=== PATIENT | female | born 1965 | race Caucasian/White ===

== ENCOUNTER 2017-09-06 17:59 | Inpatient (IN) | payer OTHER ==
[2017-09-06 18:00] VITALS: BP 179/86; PULSE 103; RESP 20; TEMP 99.1; O2SAT 98
[2017-09-06] MEDS ORDERED: LOVA20TA PO (18:05)
[2017-09-06] MEDS ORDERED: PREV30CA36 PO (18:05)
[2017-09-06] MEDS ORDERED: SODIUM CHLOR 0.9% 1000 ML INJ 1,000 ML IV SCH (18:26)
[2017-09-06] MEDS ORDERED: SODIUM CHLORIDE 0.9% FLUSH 10 ML FLUSH IV FLUSH PRN (18:30)
[2017-09-06] MEDS ORDERED: ONDANSETRON ODT 4 MG TAB PO ONE (18:30)
[2017-09-06] MEDS ORDERED: MORPHINE SULFATE 4 MG/ML INJ IV PUSH ONE (18:30)
--- NOTE | 2017-09-06 18:31 | PD ---
HPI Chief Complaint: Abdominal Pain Time Seen by Provider: 18:20 Travel History International Travel<30 days: No Contact w/Intl Traveler<30days: No Traveled to known affect area: No History of Present Illness HPI 52-year-old female here for evaluation of abdominal pain. At around 10:30 AM the patient began experiencing severe/sharp/right upper quadrant abdominal pain. At this time the patient became nauseous and vomited. Pain has been constant, moderate to severe, worse with movements and inspiration. No history of abdominal surgeries. She had a normal bowel movement this morning. She has felt subjective fevers and chills. PFSH Past Medical History High Cholesterol: Yes Diminished Hearing: No GERD: Yes (Brink's esophagus) Integumentary: Yes (Psoriasis ) Tetanus Vaccination: > 5 Years Influenza Vaccination: Yes ?: Not Tubal Ligation: Yes Past Surgical History Other Surgery: Yes (bilat bunion removal & left leg varicose veins) Family History Family Myocardial Infarction: Yes Social History Alcohol Use: Yes (socially) Tobacco Use: No Substance Use: No Allergies-Medications (Allergen,Severity, Reaction): Coded Allergies: prochlorperazine (Verified Allergy, Severe, 09/06/17) ANAPHYLAXIS Reported Meds & Prescriptions Reported Meds & Active Scripts Active Reported Lovastatin 20 Mg Tab 20 Mg PO DAILY Prevacid (Lansoprazole) 30 Mg Capdr 30 Mg PO DAILY Review of Systems Except as stated in HPI: all other systems reviewed are Neg Physical Exam Narrative GENERAL: Well-developed, well-nourished, no apparent distress. SKIN: Focused skin assessment warm/dry. No rash. HEAD: Atraumatic. Normocephalic. EYES: Pupils equal and round. No scleral icterus. No injection or drainage. ENT: Mucous membranes pink and moist. NECK: Trachea midline. No JVD. CARDIOVASCULAR: Regular rate and rhythm. RESPIRATORY: No accessory muscle use. Clear to auscultation. Breath sounds equal bilaterally. GASTROINTESTINAL: Abdomen soft, nondistended. Significant right upper quadrant tenderness with positive Delvalle sign. The rest of her abdomen is mildly tender. Normal bowel sounds. MUSCULOSKELETAL: No obvious deformities. No clubbing. No cyanosis. No edema. NEUROLOGICAL: Awake and alert. No obvious cranial nerve deficits. Motor grossly within normal limits. Normal speech. PSYCHIATRIC: Appropriate mood and affect; insight and judgment normal. Data Data Last Documented VS Vital Signs Date Time Temp Pulse Resp B/P (MAP) Pulse Ox O2 Delivery O2 Flow Rate FiO2 09/06/17 20:29 85 16 105/57 (73) 97 Room Air 09/06/17 18:00 99.1 Orders Orders Electrocardiogram (09/06/17 18:07) Complete Blood Count With Diff (09/06/17 18:) Comprehensive Metabolic Panel (09/06/17:) Lipase (09/06/17:) Prothrombin Time / Inr (Pt) (09/06/17:) Act Partial Throm Time (Ptt) (09/06/17:) Urinalysis - C+S If Indicated (09/06/17 18:) Us Abdomen Gallbladder (09/06/17 ) Iv Access Insert/Monitor (09/06/17:) Ecg Monitoring (09/06/17:) Oximetry (09/06/17 18:) Sodium Chlor 0.9% 1000 Ml Inj (Ns 1000 M (09/06/17 18:) Sodium Chloride 0.9% Flush (Ns Flush) (09/06/17 18:30) Ondansetron Odt (Zofran Odt) (09/06/17 18:30) Morphine Inj (Morphine Inj) (09/06/17 18:30) Chest, Single Ap (09/06/17 ) Ckmb (Isoenzyme) Profile (09/06/17 18:) Troponin I (09/06/17 18:26) Piperacil-Tazo 4.5 Gm Premix (Zosyn 4.5 (09/06/17 19:15) Hydromorphone Pf Inj (Dilaudid Pf Inj) (09/06/17 19:15) Ct Abd/Pel W Iv Contrast(Rout) (09/06/17 ) Sodium Chlor 0.9% 1000 Ml Inj (Ns 1000 M (09/06/17 19:15) Iohexol 350 Inj (Omnipaque 350 Inj) (09/06/17 20:28) Labs Laboratory Tests Test 09/06/17 18:15 09/06/17 18:30 Urine Color YELLOW Urine Turbidity CLEAR Urine pH 5.5 Urine Specific [place] 1.020 Urine Protein NEG mg/dL Urine Glucose (UA) 100 mg/dL Urine Ketones NEG mg/dL Urine Occult Blood NEG Urine Nitrite NEG Urine Bilirubin NEG Urine Urobilinogen 0.2 MG/DL Urine Leukocyte Esterase NEG Urine RBC 0-3 /hpf Urine WBC 0-2 /hpf Urine Squamous Epithelial Cells 0-5 /hpf Urine Bacteria NONE /hpf Microscopic Urinalysis Comment CULT NOT INDICATED White Blood Count 12.3 TH/MM3 Red Blood Count 4.90 MIL/MM3 Hemoglobin 13.8 GM/DL Hematocrit 41.9 % Mean Corpuscular Volume 85.4 FL Mean Corpuscular Hemoglobin 28.1 PG Mean Corpuscular Hemoglobin Concent 32.9 % Red Cell Distribution Width 12.2 % Platelet Count 311 TH/MM3 Mean Platelet Volume 8.6 FL Neutrophils (%) (Auto) 84.2 % Lymphocytes (%) (Auto) 10.9 % Monocytes (%) (Auto) 3.3 % Eosinophils (%) (Auto) 0.9 % Basophils (%) (Auto) 0.7 % Neutrophils # (Auto) 10.4 TH/MM3 Lymphocytes # (Auto) 1.3 TH/MM3 Monocytes # (Auto) 0.4 TH/MM3 Eosinophils # (Auto) 0.1 TH/MM3 Basophils # (Auto) 0.1 TH/MM3 CBC Comment AUTO DIFF Differential Comment AUTO DIFF CONFIRMED Platelet Estimate NORMAL Platelet Morphology Comment NORMAL Red Cell Morphology Comment NORMAL Prothrombin Time 10.2 SEC Prothromb Time International Ratio 1.0 RATIO Activated Partial Thromboplast Time 26.0 SEC Blood Urea Nitrogen 13 MG/DL Creatinine 0.69 MG/DL Random Glucose 178 MG/DL Total Protein 7.9 GM/DL Albumin 3.9 GM/DL Calcium Level 9.3 MG/DL Alkaline Phosphatase 72 U/L Aspartate Amino Transf (AST/SGOT) 14 U/L Alanine Aminotransferase (ALT/SGPT) 43 U/L Total Bilirubin 0.4 MG/DL Sodium Level 140 MEQ/L Potassium Level 3.8 MEQ/L Chloride Level 105 MEQ/L Carbon Dioxide Level 26.4 MEQ/L Anion Gap 9 MEQ/L Estimat Glomerular Filtration Rate 89 ML/MIN Total Creatine Kinase 74 U/L Troponin I LESS THAN 0.02 NG/ML Lipase 42604 U/L MDM Medical Decision Making Medical Screen Exam Complete: Yes Emergency Medical Condition: Yes Interpretation(s) EKG: Sinus, rate 82, normal axis, normal intervals, no acute ischemic abnormality. Differential Diagnosis Cholecystitis, cholelithiasis, pancreatitis, gastritis, peptic ulcer disease, ACS, PE Narrative Course Initial vital signs show heart rate 103, blood pressure 179/86, pulse ox 90% on room air, oral temp of 99.1F. CBC: WBC 12.3, hemoglobin 13.8, hematocrit 41.9, platelets 311, neutrophils 84%. CMP is remarkable for random glucose 178, otherwise unremarkable. Cardiac enzymes are negative. Lipase is 12,744. UA is not suggestive of UTI, 100 glucose. Patient was empirically given a dose of IV Zosyn for likely cholecystitis/ gallstone pancreatitis. Right upper quadrant ultrasound: CONCLUSION: 1. Enlarged echogenic liver likely moderate/severe hepatic steatosis. 2. No evidence for cholelithiasis Patient was made aware of all findings. Pain improved with 1 mg of IV Dilaudid. She was given a liter of normal saline IV and started on normal saline at 125 cc/h. She will be admitted for further treatment and evaluation of acute pancreatitis. Case discussed with [facility] hospitalist Dr. Reaves who will admit the patient to his service. Diagnosis Primary Impression: Acute pancreatitis Qualified Codes: K85.90 - Acute pancreatitis without necrosis or infection, unspecified Admitting Information Admitting Physician Requests: Admit Connor Simmons MD September 06, 2017 18:31
[2017-09-06 18:35] VITALS: RESP 17; O2SAT 98
[2017-09-06 18:42] LABS: AUTOMATED NEUTROPHIL # 10.4 TH/MM3 (1.8-7.7); BASOPHIL # 0.1 TH/MM3 (0-0.2); BASOPHIL % 0.7 % (0.0-2.0); EOSINOPHIL # 0.1 TH/MM3 (0-0.4); EOSINOPHIL % 0.9 % (0.0-4.0); HEMATOCRIT 41.9 % (35.0-46.0); HEMOGLOBIN 13.8 GM/DL (11.6-15.3); LYMPH % 10.9 % (9.0-44.0); LYMPHOCYTE # 1.3 TH/MM3 (1.0-4.8); MEAN CELL VOLUME 85.4 FL (80.0-100.0); MEAN CORPUSCULAR HEMOGLOBIN 28.1 PG (27.0-34.0); MEAN CORPUSCULAR HGB CONC 32.9 % (32.0-36.0); MEAN PLATELET VOLUME 8.6 FL (7.0-11.0); MONO % 3.3 % (0.0-8.0); MONOCYTE # 0.4 TH/MM3 (0-0.9); NEUT % 84.2 % (16.0-70.0); PLATELET COUNT 311 TH/MM3 (150-450); RED CELL DISTRIBUTION WIDTH 12.2 % (11.6-17.2); WHITE BLOOD COUNT 12.3 TH/MM3 (4.0-11.0)
[2017-09-06 18:44] LABS: BILIRUBIN, URINE NEG (NEG); BLOOD, URINE NEG (NEG); GLUCOSE,URINE 100 mg/dL (NEG); KETONE, URINE NEG (NEG); NITRITE,URINE NEG (NEG); PH, URINE 5.5 (5.0-8.5); URINE COLOR YELLOW (YELLW/STRAW); URINE LEUKOCYTE ESTERASE NEG (NEG)
--- NOTE | 2017-09-06 18:45 | RADRPT ---
EXAM DATE/TIME: 09/06/2017 18:32 [facility] COMPARISON: No previous studies available for comparison. INDICATIONS : Mid upper abdomen, mid lower chest area pain, nausea, vomiting, fever MEDICAL HISTORY : None. SURGICAL HISTORY : None. ENCOUNTER: Initial ACUITY: 1 day PAIN SCORE: 8/10 LOCATION: Bilateral lower chest FINDINGS: A single view of the chest demonstrates the lungs to be symmetrically aerated without evidence of mas s, infiltrate or effusion. The cardiomediastinal contours are unremarkable. Osseous structures are intact. CONCLUSION: No acute disease. Gage Mckeon MD on September 06, 2017 at 18:42 Board Certified Radiologist. This report was verified electronically.
[2017-09-06 18:54] LABS: CHLORIDE 105 MEQ/L (98-107); SODIUM (NA) 140 MEQ/L (136-145)
[2017-09-06 18:56] LABS: RBC, URINE 0-3 /hpf (0-3); SQUAMOUS EPITHELIAL CELL URINE 0-5 /hpf (0-5); WBC, URINE 0-2 /hpf (0-5)
[2017-09-06 18:58] LABS: CALCIUM 9.3 MG/DL (8.5-10.1)
[2017-09-06 18:59] LABS: ALBUMIN 3.9 GM/DL (3.4-5.0); BICARBONATE 26.4 MEQ/L (21.0-32.0); BLOOD UREA NITROGEN 13 MG/DL (7-18); GLUCOSE,RANDOM 178 MG/DL (74-106)
[2017-09-06 19:02] LABS: ALT (GPT) 43 U/L (10-53); AST (GOT) 14 U/L (15-37); CREATININE 0.69 MG/DL (0.50-1.00); GLOMERULAR FILTRATION RATE 89 ML/MIN (>89)
[2017-09-06 19:03] LABS: TOTAL BILIRUBIN ADULT 0.4 MG/DL (0.2-1.0); TOTAL PROTEIN 7.9 GM/DL (6.4-8.2)
[2017-09-06 19:04] VITALS: BP 136/80; PULSE 78; RESP 18; O2SAT 99
[2017-09-06 19:04] LABS: ALKALINE PHOSPHATASE 72 U/L (45-117); PROTHROMBIN TIME - PATIENT 10.2 SEC (9.8-11.6)
[2017-09-06 19:07] LABS: TROPONIN I LESS THAN 0.02 NG/ML (0.02-0.05)
[2017-09-06] MEDS ORDERED: PIPERACIL-TAZO 4.5 GM PREMIX 100 ML IV ONE (19:15)
[2017-09-06] MEDS ORDERED: SODIUM CHLOR 0.9% 1000 ML INJ 1,000 ML IV ONE (19:15)
[2017-09-06] MEDS ORDERED: HYDROmorphone HCL PF 2 MG/ML VIAL IV PUSH ONE ×2 (19:15→21:45)
--- NOTE | 2017-09-06 20:00 | RADRPT ---
EXAM DATE/TIME: 09/06/2017 19:20 [facility] COMPARISON: No previous studies available for comparison. INDICATIONS : Right upper quadrant pain with nausea and vomiting. MEDICAL HISTORY : Hypercholesterolemia. Gastroesophageal reflux disease. Brink's esophagus. SURGICAL HISTORY : Tubal ligation. ENCOUNTER: Initial ACUITY: 1 day PAIN SCORE: 8/10 LOCATION: Right upper quadrant MEASUREMENTS: LIVER: 19.2 cm length COMMON DUCT: 4 mm RIGHT KIDNEY: 10.9 x 5.5 x 4.4 cm FINDINGS: LIVER: Diffusely echogenic without focal lesion or ductal dilatation. COMMON DUCT: No intraluminal mass or stone visualized. GALLBLADDER: Contains no stones, demonstrates no wall thickening or pericholecystic fluid. PANCREAS: The visualized portions are within normal limits. RIGHT KIDNEY: No evidence of hydronephrosis, stone, or mass. CONCLUSION: 1. Enlarged echogenic liver likely moderate/severe hepatic steatosis. 2. No evidence for cholelithiasis Gage Mckeon MD on September 06, 2017 at 19:57 Board Certified Radiologist. This report was verified electronically.
[2017-09-06] MEDS ORDERED: IOHEXOL 350 MG/ML 10 ML VIAL (for RAD DIAG) IVCONTRAST ONE (20:28)
[2017-09-06 20:29] VITALS: BP 105/57; PULSE 85; RESP 16; O2SAT 97
--- NOTE | 2017-09-06 20:40 | RADRPT ---
EXAM DATE/TIME: 09/06/2017 20:10 [facility] COMPARISON: No previous studies available for comparison. INDICATIONS : Right upper quadrant pain. Nausea. Vomiting. Bloating. IV CONTRAST: 100 cc Omnipaque 350 (iohexol) IV ORAL CONTRAST: No oral contrast ingested. RADIATION DOSE: 20.75 CTDIvol (mGy) MEDICAL HISTORY : Gastroesophageal reflux disease. SURGICAL HISTORY : Tubal ligation. ENCOUNTER: Initial ACUITY: 1 day PAIN SCALE: 5/10 LOCATION: Right upper quadrant TECHNIQUE: Volumetric scanning of the abdomen and pelvis was performed. Using automated exposure control and ad justment of the mA and/or kV according to patient size, radiation dose was kept as low as reasonably achievable to obtain optimal diagnostic quality images. DICOM format image data is available electro nically for review and comparison. FINDINGS: LOWER LUNGS: The visualized lower lungs are clear. LIVER: Decreased attenuation without lesion. There is no dilation of the biliary tree. No calcified gallst ones. SPLEEN: Normal size without lesion. PANCREAS: Slight stranding pancreatic head with minimal adjacent fluid. KIDNEYS: Normal in size and shape. There is no mass, stone or hydronephrosis. ADRENAL GLANDS: Within normal limits. VASCULAR: There is no aortic aneurysm. BOWEL/MESENTERY: There is fluid adjacent to the duodenum. Large bowel unremarkable. Small hiatal hernia. There is no free intraperitoneal air or fluid. Diverticulosis of the colon. ABDOMINAL WALL: Within normal limits. RETROPERITONEUM: There is no lymphadenopathy. BLADDER: No wall thickening or mass. REPRODUCTIVE: Within normal limits. INGUINAL: There is no lymphadenopathy or hernia. MUSCULOSKELETAL: Within normal limits for patient age. CONCLUSION: 1. There is minimal fluid adjacent to the pancreatic head/duodenum likely pancreatitis versus less li katie duodenitis. Correlation with amylase/lipase levels. 2. Diverticulosis without diverticulitis. 3. Moderate hepatic steatosis. Gage Mckeon MD on September 06, 2017 at 20:35 Board Certified Radiologist. This report was verified electronically.
[2017-09-06 21:40] VITALS: BP 109/61; PULSE 78; RESP 16; O2SAT 98
[2017-09-06] MEDS ORDERED: HYDROmorphone HCL PF 4 MG/ML VIAL IV PUSH PRN (21:45)
[2017-09-06] MEDS: ONDANSETRON ODT 4 MG TAB PO PRN ×2 (22:15→22:16)
[2017-09-06 22:32] VITALS: BP 111/62
[2017-09-07 00:01] VITALS: BP 109/67; PULSE 70; RESP 16; TEMP 97.4; O2SAT 92
[2017-09-07 04:43] VITALS: RESP 16
[2017-09-07 07:13] LABS: AUTOMATED NEUTROPHIL # 7.3 TH/MM3 (1.8-7.7); BASOPHIL % 0.3 % (0.0-2.0); EOSINOPHIL # 0.1 TH/MM3 (0-0.4); EOSINOPHIL % 0.8 % (0.0-4.0); HEMATOCRIT 35.5 % (35.0-46.0); HEMOGLOBIN 12.3 GM/DL (11.6-15.3); LYMPH % 13.9 % (9.0-44.0); LYMPHOCYTE # 1.3 TH/MM3 (1.0-4.8); MEAN CELL VOLUME 86.2 FL (80.0-100.0); MEAN CORPUSCULAR HEMOGLOBIN 29.8 PG (27.0-34.0); MEAN CORPUSCULAR HGB CONC 34.5 % (32.0-36.0); MEAN PLATELET VOLUME 8.9 FL (7.0-11.0); MONO % 5.6 % (0.0-8.0); MONOCYTE # 0.5 TH/MM3 (0-0.9); NEUT % 79.4 % (16.0-70.0); PLATELET COUNT 271 TH/MM3 (150-450); RED BLOOD COUNT 4.12 MIL/MM3 (4.00-5.30); RED CELL DISTRIBUTION WIDTH 12.8 % (11.6-17.2); WHITE BLOOD COUNT 9.2 TH/MM3 (4.0-11.0)
[2017-09-07 07:19] LABS: CHLORIDE 108 MEQ/L (98-107); SODIUM (NA) 143 MEQ/L (136-145)
[2017-09-07 07:48] LABS: ALBUMIN 3.2 GM/DL (3.4-5.0); ALKALINE PHOSPHATASE 58 U/L (45-117); ALT (GPT) 34 U/L (10-53); AST (GOT) 9 U/L (15-37); BICARBONATE 29.6 MEQ/L (21.0-32.0); BLOOD UREA NITROGEN 12 MG/DL (7-18); CALCIUM 8.1 MG/DL (8.5-10.1); CREATININE 0.52 MG/DL (0.50-1.00); GLOMERULAR FILTRATION RATE 124 ML/MIN (>89); GLUCOSE,RANDOM 130 MG/DL (74-106); TOTAL BILIRUBIN ADULT 0.5 MG/DL (0.2-1.0); TOTAL PROTEIN 6.7 GM/DL (6.4-8.2)
[2017-09-07 08:00] VITALS: BP 113/56; PULSE 68; RESP 16; TEMP 97.7; O2SAT 97
--- NOTE | 2017-09-07 08:30 | HHI.HP ---
HPI Service [facility] Hospitalists Primary Care Physician Yuri Moreno MD Admission Diagnosis Acute pancreatitis Chief Complaint: Abdominal pain, nausea with vomiting, inability to tolerate oral intake Travel History International Travel<30 Days: No Contact w/Intl Traveler <30 Da: No Traveled to Known Affected Are: No History of Present Illness 52-year-old female with history of hyperlipidemia and Brink's esophagus presents to ER for evaluation of abdominal pain. Patient reports that approximately 2 hours after her morning meal yesterday while she was walking at the [employer], she began experiencing severe/sharp/right upper quadrant abdominal pain. At this time the patient became nauseous and vomited all the contents of her breakfast. No hemoptysis or hematemesis. No coffee-ground emesis. She reports that she tried to sip some clear liquids after that and eat ice chips but each time she would subsequently vomit. The abdominal pain remained constant, moderate to severe, worse with movements and inspiration. No history of abdominal surgeries or previous issues with her gallbladder or pancreas. She had a normal bowel movement the morning prior to arrival. She has felt subjective fevers and chills but temperature has not been above 99. Her admission labs noted for slight elevated white count of 12,000 and significantly elevated lipase of over 12,000. CT scan consistent with some pancreatitis at the head of the pancreas. No obvious mass was noted. No gallstones were noted. Patient was placed on bowel rest, IV fluids and pain medication. She has been resting relatively well and her last episode of emesis or dry heaving was around midnight. She still is requiring some IV pain medication however. He says her mouth is dry and she like to see if she can tolerate some ice chips. Review of Systems Constitutional: COMPLAINS OF: Diaphoretic episodes, Chills, DENIES: Fatigue, Fever, Weight gain, Weight loss, Dizziness, Change in appetite, Night Sweats Endocrine: DENIES: Abnorml menstrual pattern, Heat/cold intolerance, Polydipsia , Polyuria, Polyphagia Eyes: DENIES: Blurred vision, Diplopia, Eye inflammation, Eye pain, Vision loss , Photosensitivity, Double Vision Ears, nose, mouth, throat: DENIES: Tinnitus, Hearing loss, Vertigo, Nasal discharge, Oral lesions, Throat pain, Hoarseness, Ear Pain, Running Nose, Epistaxis, Sinus Pain, Toothache, Odynophagia Respiratory: DENIES: Apneas, Cough, Snoring, Wheezing, Hemoptysis, Sputum production, Shortness of breath Cardiovascular: DENIES: Chest pain, Palpitations, Syncope, Dyspnea on Exertion , PND, Lower Extremity Edema, Orthopnea, Claudication Gastrointestinal: COMPLAINS OF: Abdominal pain, GERD, Nausea, Vomiting, DENIES : Black stools, Bloody stools, BRB per rectum, Constipation, Diarrhea, Reflux, Difficulty Swallowing, Anorexia, See HPI Musculoskeletal: DENIES: Joint pain, Muscle aches, Stiffness, Joint Swelling, Back pain, Neck pain Integumentary: DENIES: Abnormal pigmentation, Pruritus, Rash, Nail changes, Breast masses, Breast skin changes, Nipple discharge Hematologic/lymphatic: DENIES: Bruising, Lymphadenopathy Immunologic/allergic: DENIES: Eczema, Urticaria Neurologic: DENIES: Abnormal gait, Headache, Localized weakness, Paresthesias, Seizures, Speech Problems, Tremor, Poor Balance Psychiatric: DENIES: Anxiety, Confusion, Mood changes, Depression, Hallucinations, Agitation, Suicidal Ideation, Homicidal Ideation, Delusions, History of Bipolar, History of Schizophrenia Past Family Social History Past Medical History Hyperlipidemia GERD Brink's esophagus Obesity Past Surgical History Bunionectomy Bilateral tubal ligation Varicose vein procedures Reported Medications Lovastatin 20 Mg Tab 20 Mg PO DAILY Prevacid (Lansoprazole) 30 Mg Capdr 30 Mg PO DAILY Allergies: Coded Allergies: prochlorperazine (Verified Allergy, Severe, 09/06/17) ANAPHYLAXIS Family History Father had coronary disease, hypertension and diabetes Mother has diabetes Social History No tobacco ever Rarely drinks any alcohol Denies illicit drug use and lives with her Works as an ER nurse at [employer] Originally from [place], has been here for 4 years Physical Exam Vital Signs Vital Signs Date Time Temp Pulse Resp B/P (MAP) Pulse Ox O2 Delivery O2 Flow Rate FiO2 09/07/17 08:00 97.7 68 16 113/56 (75) 97 09/07/17 04:43 16 09/07/17 04:42 16 09/07/17 00:01 97.4 70 16 109/67 (81) 92 09/06/17 22:32 76 18 111/62 (78) 99 09/06/17 21:40 78 16 109/61 (77) 98 Room Air 09/06/17 20:29 85 16 105/57 (73) 97 Room Air 09/06/17 19:04 78 18 136/80 (98) 99 Room Air 09/06/17 18:35 17 98 Room Air 09/06/17 18:00 99.1 103 20 179/86 (117) 98 Physical Exam GENERAL: This is a well-nourished, slightly obese, well-developed patient, in no apparent distress. SKIN: No rashes, ecchymoses or lesions. Cool and dry. HEAD: Atraumatic. Normocephalic. No temporal or scalp tenderness. EYES: Pupils equal round and reactive. Extraocular motions intact. No scleral icterus. No injection or drainage. ENT: Nose without bleeding, purulent drainage or septal hematoma. Oral mucosa slightly dry. Airway patent. NECK: Trachea midline. No JVD or lymphadenopathy. Supple, nontender, no meningeal signs. CARDIOVASCULAR: Regular rate and rhythm without murmurs, gallops, or rubs. RESPIRATORY: Clear to auscultation. Breath sounds equal bilaterally. No wheezes , rales, or rhonchi. GASTROINTESTINAL: Abdomen soft, nondistended. No palpable masses. Tenderness to palpation noted in the epigastrium and right upper quadrant. Voluntary guarding noted. No rebound. Bowel sounds normal. MUSCULOSKELETAL: Extremities without clubbing, cyanosis, or edema. No joint tenderness, effusion, or edema noted. No calf tenderness. NEUROLOGICAL: Awake and alert. Cranial nerves II through XII intact. Motor and sensory grossly within normal limits. Five out of 5 muscle strength in all muscle groups. Normal speech. Laboratory Laboratory Tests Test 09/06/17 18:15 09/06/17 18:30 09/07/17 06:27 Urine Color YELLOW Urine Turbidity CLEAR Urine pH 5.5 Urine Specific [place] 1.020 Urine Protein NEG Urine Glucose (UA) 100 Urine Ketones NEG Urine Occult Blood NEG Urine Nitrite NEG Urine Bilirubin NEG Urine Urobilinogen 0.2 Urine Leukocyte Esterase NEG Urine RBC 0-3 Urine WBC 0-2 Urine Squamous Epithelial Cells 0-5 Urine Bacteria NONE Microscopic Urinalysis Comment CULT NOT INDICATED White Blood Count 12.3 9.2 Red Blood Count 4.90 4.12 Hemoglobin 13.8 12.3 Hematocrit 41.9 35.5 Mean Corpuscular Volume 85.4 86.2 Mean Corpuscular Hemoglobin 28.1 29.8 Mean Corpuscular Hemoglobin Concent 32.9 34.5 Red Cell Distribution Width 12.2 12.8 Platelet Count 311 271 Mean Platelet Volume 8.6 8.9 Neutrophils (%) (Auto) 84.2 79.4 Lymphocytes (%) (Auto) 10.9 13.9 Monocytes (%) (Auto) 3.3 5.6 Eosinophils (%) (Auto) 0.9 0.8 Basophils (%) (Auto) 0.7 0.3 Neutrophils # (Auto) 10.4 7.3 Lymphocytes # (Auto) 1.3 1.3 Monocytes # (Auto) 0.4 0.5 Eosinophils # (Auto) 0.1 0.1 Basophils # (Auto) 0.1 0.0 CBC Comment AUTO DIFF DIFF FINAL Differential Comment AUTO DIFF CONFIRMED Platelet Estimate NORMAL Platelet Morphology Comment NORMAL Red Cell Morphology Comment NORMAL Prothrombin Time 10.2 Prothromb Time International Ratio 1.0 Activated Partial Thromboplast Time 26.0 Blood Urea Nitrogen 13 12 Creatinine 0.69 0.52 Random Glucose 178 130 Total Protein 7.9 6.7 Albumin 3.9 3.2 Calcium Level 9.3 8.1 Alkaline Phosphatase 72 58 Aspartate Amino Transf (AST/SGOT) 14 9 Alanine Aminotransferase (ALT/SGPT) 43 34 Total Bilirubin 0.4 0.5 Sodium Level 140 143 Potassium Level 3.8 3.8 Chloride Level 105 108 Carbon Dioxide Level 26.4 29.6 Anion Gap 9 5 Estimat Glomerular Filtration Rate 89 124 Total Creatine Kinase 74 Troponin I LESS THAN 0.02 Lipase 39331 1760 Result Diagram: 09/07/17 0627 09/07/17 0627 Imaging Last 72 hours Impressions Gall Bladder Ultrasound 09/06/17 0000 Signed Impressions: Service Date/Time: Wednesday, September 06, 2017 19:20 - CONCLUSION: 1. Enlarged echogenic liver likely moderate/severe hepatic steatosis. 2. No evidence for cholelithiasis Gage Mckeon MD Chest X-Ray 09/06/17 0000 Signed Impressions: Service Date/Time: Wednesday, September 06, 2017 18:32 - CONCLUSION: No acute disease. Gage Mckeon MD Abdomen/Pelvis CT 09/06/17 0000 Signed Impressions: Service Date/Time: Wednesday, September 06, 2017 20:10 - CONCLUSION: 1. There is minimal fluid adjacent to the pancreatic head/duodenum likely pancreatitis versus less likely duodenitis. Correlation with amylase/lipase levels. 2. Diverticulosis without diverticulitis. 3. Moderate hepatic steatosis. Gage Mckeon MD Caprini VTE Risk Assessment Caprini VTE Risk Assessment: Mod/High Risk (score >= 2) Caprini Risk Assessment Model Point Value = 1 Point Value = 2 Point Value = 3 Point Value = 5 Age 41-60 Minor surgery BMI > 25 kg/m2 Swollen legs Varicose veins or History of unexplained or recurrent spontaneous Oral contraceptives or hormone replacement Sepsis (< 1 month) Serious lung disease, including pneumonia (< 1 month) Abnormal pulmonary function Acute myocardial infarction Congestive heart failure (< 1 month) History of inflammatory bowel disease Medical patient at bed rest Age 61-74 Arthroscopic surgery Major open surgery (> 45 min) Laparoscopic surgery (> 45 min) Malignancy Confined to bed (> 72 hours) Immobilizing plaster cast Central venous access Age >= 75 History of VTE Family history of VTE Factor V Leiden Prothrombin [id number] Lupus anticoagulant Anticardiolipin antibodies Elevated serum homocysteine Heparin-induced thrombocytopenia Other congenital or acquired thrombophilia Stroke (< 1 month) Elective arthroplasty Hip, pelvis, or leg fracture Acute spinal cord injury (< 1 month) Prophylaxis Regimen Total Risk Factor Score Risk Level Prophylaxis Regimen 0-1 Low Early ambulation 2 Moderate Order ONE of the following: *Sequential Compression Device (SCD) *Heparin 5000 units SQ BID 3-4 Higher Order ONE of the following medications: *Heparin 5000 units SQ TID *Enoxaparin/Lovenox 40 mg SQ daily (WT < 150 kg, CrCl > 30 mL/min) *Enoxaparin/Lovenox 30 mg SQ daily (WT < 150 kg, CrCl > 10-29 mL/min) *Enoxaparin/Lovenox 30 mg SQ BID (WT < 150 kg, CrCl > 30 mL/min) AND/OR *Sequential Compression Device (SCD) 5 or more Highest Order ONE of the following medications: *Heparin 5000 units SQ TID (Preferred with Epidurals) *Enoxaparin/Lovenox 40 mg SQ daily (WT < 150 kg, CrCl > 30 mL/min) *Enoxaparin/Lovenox 30 mg SQ daily (WT < 150 kg, CrCl > 10-29 mL/min) *Enoxaparin/Lovenox 30 mg SQ BID (WT < 150 kg, CrCl > 30 mL/min) AND *Sequential Compression Device (SCD) Assessment and Plan Problem List: (1) Acute pancreatitis ICD Codes: K85.90 - Acute pancreatitis without necrosis or infection, unspecified Status: Acute Plan: Questionable etiology. No gallstones seen on ultrasound or CT, patient does not drink alcohol regularly, she is not on any obvious offensive drugs and is no new medications recently. At this point appears to be idiopathic pancreatitis which is not an uncommon cause. We will continue IV fluid, pain medication and relative bowel rest. We will see how she does with some ice chips this morning. (2) Hyperlipidemia ICD Codes: E78.5 - Hyperlipidemia, unspecified Status: Chronic Plan: Labs pending. Continue medication when able to tolerate oral intake (3) Barretts esophagus ICD Codes: K22.70 - Brink's esophagus without dysplasia Status: Chronic Plan: Continue medication when taking oral intake. If she cannot tolerate oral intake, will provide IV Protonix. Code Status Full Discussed Condition With Patient, her and ER provider Problem Qualifiers (1) Acute pancreatitis: Qualified Codes: K85.90 - Acute pancreatitis without necrosis or infection, unspecified Derick Reaves MD PhD September 07, 2017 08:30
[2017-09-07] MEDS ORDERED: MORPHINE SULFATE 8 MG/ML INJ IV PUSH PRN (08:45)
[2017-09-07] MEDS ORDERED: PANTOPRAZOLE SODIUM 40 MG VIAL IV PUSH SCH (09:00)
[2017-09-07 10:35] LABS: CHOLESTEROL 170 MG/DL (120-200); TRIGLYCERIDES 138 MG/DL (42-150)
[2017-09-07 12:00] VITALS: BP 104/58; PULSE 60; RESP 16; TEMP 96.5; O2SAT 94
[2017-09-07] MEDS: ONDANSETRON ODT 4 MG TAB PO PRN (12:39)
[2017-09-07] MEDS: KETOROLAC TROMETHAMINE 30 MG/ML (IVP) VIAL IV PUSH PRN ×2 (15:46→22:10)
[2017-09-07 16:00] VITALS: BP 114/62; PULSE 62; RESP 16; TEMP 97.6; O2SAT 98
[2017-09-07 16:18] LABS: HEMOGLOBIN A1C 7.5 % (4.3-6.0)
[2017-09-07 20:16] VITALS: BP 107/69; PULSE 63; RESP 20; TEMP 96.2; O2SAT 94
--- NOTE | 2017-09-07 20:59 | EKG ---
Date Performed: 09/06/2017 Time Performed: 18:13:19 PTAGE: 52 years EKG: Sinus rhythm Consider anterolateral and inferior ischemia. BORDERLINE ECG NO PREVIOUS TRACING DOCTOR: Navin Ashford Interpretating Date/Time 09/07/2017 20:58:25
[2017-09-08 00:11] VITALS: BP 105/60; PULSE 77; RESP 20; TEMP 98.3; O2SAT 94
[2017-09-08] MEDS: MORPHINE SULFATE 4 MG/ML INJ IV PRN ×3 (05:07→22:54)
[2017-09-08] MEDS ORDERED: ACETAMINOPHEN/HYDROcodone 325 MG/5 MG TAB PO PRN (07:30)
--- NOTE | 2017-09-08 07:49 | HHI.PR ---
Subjective Remarks Patient still with some nausea. She had vomiting yesterday but just dry heaves and nausea with pain last night. She seems to respond well to the Toradol and does not want strong opiate medications if possible. We have discussed the fact that she is actually diabetic now and that will cover with sliding scale insulin. Objective Vitals Vital Signs Date Time Temp Pulse Resp B/P (MAP) Pulse Ox O2 Delivery O2 Flow Rate FiO2 09/08/17 00:11 98.3 77 20 105/60 (75) 94 09/07/17 23:10 20 09/07/17 20:16 96.2 63 20 107/69 (82) 94 09/07/17 16:00 97.6 62 16 114/62 (79) 98 09/07/17 12:00 96.5 60 16 104/58 (73) 94 09/07/17 08:00 97.7 68 16 113/56 (75) 97 GENERAL: Obese, no acute distress, alert and oriented. Pleasant. SKIN: Warm and dry. HEAD: Normocephalic. EYES: No scleral icterus. No injection or drainage. NECK: Supple, trachea midline. No JVD or lymphadenopathy. CARDIOVASCULAR: Regular rate and rhythm without murmurs, gallops, or rubs. RESPIRATORY: Breath sounds equal bilaterally. No accessory muscle use. GASTROINTESTINAL: Abdomen soft, nondistended. Tenderness to palpation in right upper quadrant with voluntary guarding. No rebound. Bowel sounds normal. MUSCULOSKELETAL: No cyanosis, or edema. Moves all extremities well. BACK: No CVA tenderness. Result Diagram: 09/07/17 0627 09/07/17 06 Imaging Last 72 hours Impressions Gall Bladder Ultrasound 09/06/17 0000 Signed Impressions: Service Date/Time: Wednesday, September 06, 2017 19:20 - CONCLUSION: 1. Enlarged echogenic liver likely moderate/severe hepatic steatosis. 2. No evidence for cholelithiasis Gage Mckeon MD Chest X-Ray 09/06/17 0000 Signed Impressions: Service Date/Time: Wednesday, September 06, 2017 18:32 - CONCLUSION: No acute disease. Gage Mckeon MD Abdomen/Pelvis CT 09/06/17 0000 Signed Impressions: Service Date/Time: Wednesday, September 06, 2017 20:10 - CONCLUSION: 1. There is minimal fluid adjacent to the pancreatic head/duodenum likely pancreatitis versus less likely duodenitis. Correlation with amylase/lipase levels. 2. Diverticulosis without diverticulitis. 3. Moderate hepatic steatosis. Gage Mckeon MD Urinary Catheter: No Vascular Central Line Catheter: No A/P Problem List: (1) Acute pancreatitis ICD Codes: K85.90 - Acute pancreatitis without necrosis or infection, unspecified Status: Acute Plan: Questionable etiology. No gallstones seen on ultrasound or CT, patient does not drink alcohol regularly, she is not on any obvious offensive drugs and is no new medications recently. At this point appears to be idiopathic pancreatitis which is not an uncommon cause. We will continue IV fluid, pain medication. Advance diet if tolerated. We will have GI see patient given persistent symptoms. (2) Hyperlipidemia ICD Codes: E78.5 - Hyperlipidemia, unspecified Status: Chronic Plan: Triglycerides well controlled. Continue medication as outpatient. (3) Barretts esophagus ICD Codes: K22.70 - Brink's esophagus without dysplasia Status: Chronic Plan: Convert to oral Protonix. (4) DM2 (diabetes mellitus, type 2) ICD Codes: E11.9 - Type 2 diabetes mellitus without complications Status: Acute Plan: Newly diagnosed based on values from this current hospital admission. We will cover with sliding scale insulin initially. Provide diabetic education. Encouraged weight loss and exercise. May use metformin at discharge. Will avoid sulfonylureas given her current pancreatitis flare. Discharge Planning Hopefully discharge 1-2 days Physician Certification 2 Midnight Certification Type: Continued Stay Order for Inpatient Services The services are ordered in accordance with Medicare regulations or non- Medicare payer requirements, as applicable. In the case of services not specified as inpatient-only, they are appropriately provided as inpatient services in accordance with the 2-midnight benchmark. Estimated LOS (days): 2 days is the estimated time the patient will need to remain in the hospital, assuming treatment plan goals are met and no additional complications. Post-Hospital Plan: Home Problem Qualifiers (1) Acute pancreatitis: Qualified Codes: K85.90 - Acute pancreatitis without necrosis or infection, unspecified (2) DM2 (diabetes mellitus, type 2): Derick Reaves MD PhD September 08, 2017 07:49
[2017-09-08 08:00] VITALS: BP 118/59; PULSE 72; RESP 19; TEMP 98.4; O2SAT 95
[2017-09-08] MEDS: INSULIN ASPART SUPPLEMENTAL SCALE SQ SCH ×4 (08:00→20:24)
[2017-09-08] MEDS: PANTOPRAZOLE SOD 40 MG DELAYED RELEASE TAB PO SCH (08:34)
[2017-09-08] MEDS: ENOXAPARIN SODIUM 30 MG/0.3 ML SYRINGE SQ SCH (08:34)
[2017-09-08] MEDS: NS + KCL 20 MEQ INJ 1,000 ML IV SCH ×2 (09:54→20:19)
[2017-09-08] MEDS: KETOROLAC TROMETHAMINE 30 MG/ML (IVP) VIAL IV PUSH PRN ×2 (09:55→20:19)
[2017-09-08 11:48] LABS: CHLORIDE 106 MEQ/L (98-107); SODIUM (NA) 142 MEQ/L (136-145)
[2017-09-08 11:52] LABS: CALCIUM 8.4 MG/DL (8.5-10.1)
[2017-09-08 11:53] LABS: ALBUMIN 3.2 GM/DL (3.4-5.0); BICARBONATE 31.2 MEQ/L (21.0-32.0); BLOOD UREA NITROGEN 7 MG/DL (7-18); GLUCOSE,RANDOM 144 MG/DL (74-106)
[2017-09-08 11:56] LABS: ALT (GPT) 31 U/L (10-53); AST (GOT) 10 U/L (15-37); GLOMERULAR FILTRATION RATE 105 ML/MIN (>89)
[2017-09-08 11:57] LABS: TOTAL BILIRUBIN ADULT 0.4 MG/DL (0.2-1.0); TOTAL PROTEIN 6.9 GM/DL (6.4-8.2)
[2017-09-08 11:58] LABS: ALKALINE PHOSPHATASE 58 U/L (45-117)
[2017-09-08 12:00] VITALS: BP 129/69; PULSE 74; RESP 20; TEMP 98; O2SAT 96
[2017-09-08 16:00] VITALS: BP 107/55; PULSE 65; RESP 19; TEMP 99; O2SAT 96
--- NOTE | 2017-09-08 16:53 | MB ---
cc: Danis Boyle MD, Hassan MD Driggers,Derick Hopkins MD PhD Josh,Yuri Richardson MD DATE: 09/08/2017 REQUESTING PHYSICIAN: Dr. Derick Reaves REASON FOR CONSULTATION: Acute pancreatitis. HISTORY OF PRESENT ILLNESS: Ms. Webster is a 52-year-old lady who presents with 2-day history of abdominal pain, nausea and vomiting. She was diagnosed with pancreatitis based on biochemical evidence as well as on imaging. She denies any previous histories with history of pancreatitis. She does not drink alcohol. There has been no new medications reported. There is no history of recent infections or trauma. She does have elevated cholesterol, but her triglyceride on admission is 138. REVIEW OF SYSTEMS: The patient still is having nausea and abdominal pain which got worse after eating. PAST MEDICAL HISTORY: Brink's esophagus, reflux disease, obesity, hyperlipidemia. PAST SURGICAL HISTORY: Tubal ligation, varicose vein procedures, EGD. MEDICINES AT ADMISSION: 1. Lovastatin. 2. Prevacid. ALLERGIES: PROCHLORPERAZINE FAMILY HISTORY: Noncontributory. PHYSICAL EXAMINATION: GENERAL: Reveals a well-nourished lady in no apparent distress. VITAL SIGNS: Vitals are stable. HEAD AND NECK: Anicteric sclerae. CHEST: Bilateral air entry with rales. ABDOMEN: Obese, distended, tenderness to palpation. No guarding, no rigidity. NEUROLOGIC: The is nonfocal. RECTAL: Deferred at this time. LABORATORY DATA: Reveal a white cell count of 9.2, hemoglobin 12.3, creatinine is 0.6. Lipase down from 12,000 to 696. IMAGING STUDIES: CT of the abdomen and pelvis reveals changes consistent with pancreatitis. Ultrasound reveals fatty liver, otherwise, unremarkable. No gallstones seen. IMPRESSION: Pancreatitis of unclear etiology. RECOMMENDATIONS: No clear etiology of pancreatitis evident. Would recommend a magnetic resonance cholangiopancreatography as well as a CA 19-9 and alpha fetoprotein to make sure the patient does not have pancreas divisum and/or malignancy. This is her first episode of pancreatitis, so beyond this, no further workup is indicated. If, however, she has any further episodes of pancreatitis more testing by way of genetic testing as well as perhaps an endoscopic retrograde cholangiopancreatography or an endoscopic ultrasound would be recommended. This was discussed with the patient herself. She ate a regular diet for lunch, caused worsening of her pain. I am scaling her back to a liquid diet at this time. Further recommendations to follow. Thank you for this referral. MD MARGRET Gruber/ , 04:32 PM , 04:53 PM
[2017-09-08 20:00] VITALS: BP 131/86; PULSE 69; RESP 20; TEMP 99.4; O2SAT 97
[2017-09-09] VITALS: BP 138/84; PULSE 68; RESP 20; TEMP 97.3; O2SAT 92
[2017-09-09 05:33] LABS: CA 19-9 5.3 U/ML (0.0-35.0)
--- NOTE | 2017-09-09 07:44 | HHI.PR ---
Subjective Remarks Reports abdominal pain within 10-15 minutes of eating even with clear liquids. Was worse yesterday after her solid meal so she was converted back to clear liquids. Seems to be tolerating them a bit better but still has the nausea and abdominal pain is noted. She has not had any more vomiting. Positive flatus, no bowel movement. MRCP planned today. Objective Vitals Vital Signs Date Time Temp Pulse Resp B/P (MAP) Pulse Ox O2 Delivery O2 Flow Rate FiO2 09/09/17 00:00 97.3 68 20 138/84 (102) 92 09/08/17 20:00 99.4 69 20 131/86 (101) 97 09/08/17 16:00 99.0 65 19 107/55 (72) 96 09/08/17 12:00 98.0 74 20 129/69 (89) 96 09/08/17 08:00 98.4 72 19 118/59 (78) 95 GENERAL: Obese, no acute distress, alert and oriented. Pleasant. Was actually ambulating in room from the restroom. SKIN: Warm and dry. HEAD: Normocephalic. EYES: No scleral icterus. No injection or drainage. NECK: Supple, trachea midline. No JVD or lymphadenopathy. CARDIOVASCULAR: Regular rate and rhythm without murmurs, gallops, or rubs. RESPIRATORY: Breath sounds equal bilaterally. No accessory muscle use. GASTROINTESTINAL: Abdomen soft, nondistended. Tenderness to palpation in right upper quadrant and epigastrium with voluntary guarding. No rebound. Bowel sounds normal. MUSCULOSKELETAL: No cyanosis, or edema. Moves all extremities well. BACK: No CVA tenderness. Result Diagram: 09/07/17 0627 09/08/17 1100 Imaging Last 72 hours Impressions Gall Bladder Ultrasound 09/06/17 0000 Signed Impressions: Service Date/Time: Wednesday, September 06, 2017 19:20 - CONCLUSION: 1. Enlarged echogenic liver likely moderate/severe hepatic steatosis. 2. No evidence for cholelithiasis Gage Mckeon MD Chest X-Ray 09/06/17 0000 Signed Impressions: Service Date/Time: Wednesday, September 06, 2017 18:32 - CONCLUSION: No acute disease. Gage Mckeon MD Abdomen/Pelvis CT 09/06/17 0000 Signed Impressions: Service Date/Time: Wednesday, September 06, 2017 20:10 - CONCLUSION: 1. There is minimal fluid adjacent to the pancreatic head/duodenum likely pancreatitis versus less likely duodenitis. Correlation with amylase/lipase levels. 2. Diverticulosis without diverticulitis. 3. Moderate hepatic steatosis. Gage Mckeon MD Urinary Catheter: No Vascular Central Line Catheter: No A/P Problem List: (1) Acute pancreatitis ICD Codes: K85.90 - Acute pancreatitis without necrosis or infection, unspecified Status: Acute Plan: Questionable etiology. No gallstones seen on ultrasound or CT, patient does not drink alcohol regularly, she is not on any obvious offensive drugs and is no new medications recently. At this point appears to be idiopathic pancreatitis which is not an uncommon cause. GI has seen the patient. MRCP planned. Tolerating clears but had more trouble with solids yesterday. (2) Hyperlipidemia ICD Codes: E78.5 - Hyperlipidemia, unspecified Status: Chronic Plan: Triglycerides well controlled. Continue medication as outpatient. (3) Barretts esophagus ICD Codes: K22.70 - Brink's esophagus without dysplasia Status: Chronic Plan: Converted to oral Protonix. (4) DM2 (diabetes mellitus, type 2) ICD Codes: E11.9 - Type 2 diabetes mellitus without complications Status: Acute Plan: Newly diagnosed based on values from this current hospital admission. We will cover with sliding scale insulin initially. Provide diabetic education. Encouraged weight loss and exercise. May use metformin at discharge. Will avoid sulfonylureas given her current pancreatitis flare. Discharge Planning Hopefully discharge 1-2 days Problem Qualifiers (1) Acute pancreatitis: Qualified Codes: K85.90 - Acute pancreatitis without necrosis or infection, unspecified (2) DM2 (diabetes mellitus, type 2): Derick Reaves MD PhD September 09, 2017 07:44
[2017-09-09 08:00] VITALS: BP 128/80; PULSE 68; RESP 16; TEMP 98.9; O2SAT 95
[2017-09-09] MEDS: INSULIN ASPART SUPPLEMENTAL SCALE SQ SCH ×4 (08:00→21:00)
[2017-09-09] MEDS: PANTOPRAZOLE SOD 40 MG DELAYED RELEASE TAB PO SCH (08:09)
[2017-09-09] MEDS: MORPHINE SULFATE 4 MG/ML INJ IV PRN ×2 (08:10→14:37)
[2017-09-09] MEDS: ENOXAPARIN SODIUM 30 MG/0.3 ML SYRINGE SQ SCH (08:12)
[2017-09-09] MEDS: DOCUSATE SODIUM 50 MG/SENNA 8.6 MG TAB PO SCH (08:15)
--- NOTE | 2017-09-09 11:26 | RADRPT ---
EXAM DATE/TIME: 09/09/2017 10:53 [facility] COMPARISON: CT ABDOMEN & PELVIS W CONTRAST, September 06, 2017, 20:10. INDICATIONS : Pain. Right upper quadrant pain. MEDICAL HISTORY : Diabetes mellitus type 2. Gastroesophageal reflux disease. Barretts esophagus. SURGICAL HISTORY : Tubal ligation. Varicose vein removal. ENCOUNTER: Initial ACUITY: 1 day PAIN SCORE: 5/10 LOCATION: Right upper quadrant TECHNIQUE: Multiplanar, multisequence magnetic resonance imaging of the abdomen was performed. High-resolution 3D dataset was utilized to reconstruct maximum-intensity projection (MIP) images. FINDINGS: INTRAHEPATIC BILE DUCTS: Within normal limits. No significant anatomical variant is present. EXTRAHEPATIC BILE DUCTS: The common bile duct measures 6 mm No stone or filling defect is identified. GALLBLADDER: No stones, wall thickening, or pericholecystic fluid. LIVER: Normal size and signal intensity. No concerning liver lesion is identified on this non-contrast exam. PANCREAS: The main pancreatic duct is normal in size. There is no significant anatomical variant. Signal inte nsity is within normal limits. No mass is visualized on this non-contrast exam. OTHER: The remaining visualized structures demonstrate no acute abnormality on this non-contrast exam. CONCLUSION: 1. No findings to indicate biliary ductal obstruction identified. 2. No stones are seen within the gallbladder. 3. On the CT examination of 09/06/17 there was a small amount of fluid adjacent to the duodenum and pa ncreas. This is not appreciated on today's MRI. Magdaleno Treadwell MD on September 09, 2017 at 11:19 Board Certified Radiologist. This report was verified electronically.
[2017-09-09 12:00] VITALS: BP 134/88; PULSE 70; RESP 16; TEMP 98.8; O2SAT 96
[2017-09-09 16:00] VITALS: BP 139/73; PULSE 66; RESP 16; TEMP 98.7; O2SAT 96
--- NOTE | 2017-09-09 17:14 | HHI.GIFU ---
GI Follow-up Note Consult Follow-up Subjective: Patient laying in bed comfortably, no new complaints except abdominal pain. +flatus Objective: PHYSICAL EXAMINATION: Vitals signs stable No fever HEENT: Pupils round and reactive to light; normocephalic; atraumatic; no jaundice. Throat is clear. NECK: Neck is supple, no JVD, no lymphadenopathy. CHEST: Chest is clear to auscultation and percussion. CARDIAC: Regular rate and rhythm with no murmur gallop or rubs. ABDOMEN: Soft, nondistended, nontender; no hepatosplenomegaly; bowel sounds are present in all four quadrants. EXTREMITIES: No clubbing, cyanosis, or edema. SKIN: Normal; no rash; no jaundice. SETUP OPERATOR: No focal deficits; alert and oriented times three. Available Data (labs, X- Rays, Procedues) : Last Impressions Cholangiopancreatography MRI 09/09/17 0000 Signed Impressions: Service Date/Time: Saturday, September 09, 2017 10:53 - CONCLUSION: 1. No findings to indicate biliary ductal obstruction identified. 2. No stones are seen within the gallbladder. 3. On the CT examination of 09/06/17 there was a small amount of fluid adjacent to the duodenum and pancreas. This is not appreciated on today' s MRI. Magdaleno Treadwell MD Gall Bladder Ultrasound 09/06/17 0000 Signed Impressions: Service Date/Time: Wednesday, September 06, 2017 19:20 - CONCLUSION: 1. Enlarged echogenic liver likely moderate/severe hepatic steatosis. 2. No evidence for cholelithiasis Gage Mckeon MD Chest X-Ray 09/06/17 0000 Signed Impressions: Service Date/Time: Wednesday, September 06, 2017 18:32 - CONCLUSION: No acute disease. Gage Mckeon MD Abdomen/Pelvis CT 09/06/17 0000 Signed Impressions: Service Date/Time: Wednesday, September 06, 2017 20:10 - CONCLUSION: 1. There is minimal fluid adjacent to the pancreatic head/duodenum likely pancreatitis versus less likely duodenitis. Correlation with amylase/lipase levels. 2. Diverticulosis without diverticulitis. 3. Moderate hepatic steatosis. Gage Mckeon MD Laboratory Tests Test 09/08/17 11:00 09/08/17 18:05 Blood Urea Nitrogen 7 MG/DL Creatinine 0.60 MG/DL Random Glucose 144 MG/DL Total Protein 6.9 GM/DL Albumin 3.2 GM/DL Calcium Level 8.4 MG/DL Alkaline Phosphatase 58 U/L Aspartate Amino Transf (AST/SGOT) 10 U/L Alanine Aminotransferase (ALT/SGPT) 31 U/L Total Bilirubin 0.4 MG/DL Sodium Level 142 MEQ/L Potassium Level 3.7 MEQ/L Chloride Level 106 MEQ/L Carbon Dioxide Level 31.2 MEQ/L Anion Gap 5 MEQ/L Estimat Glomerular Filtration Rate 105 ML/MIN Lipase 696 U/L Tumor Marker Alpha Fetoprotein 6.3 NG/ML CA 19-9 Antigen 5.3 U/ML Allergies Coded Allergies Type Severity Reaction Last Updated Verified prochlorperazine Allergy Severe 09/06/17 Yes Active Scripts Medications Dose Route/Sig Max Daily Dose Days Date Category Lovastatin 20 Mg Tab 20 Mg PO DAILY 09/06/17 Reported Prevacid (Lansoprazole) 30 Mg Capdr 30 Mg PO DAILY 09/06/17 Reported ASSESSMENT/PLAN: Seen and examined, feels a little better in terms of pain but still worsens with diet. Not requiring pain meds so far today. MRCP normal. Hopefully can advance diet tomorrow and dc home if tolerates. No clear reason for pancreatitis. It was a pleasure seeing Lena Webster. Thank you for this consult. Entered by: Danis Schaffer MD September 09, 2017 17:14
[2017-09-09 18:24] LABS: AUTOMATED NEUTROPHIL # 4.6 TH/MM3 (1.8-7.7); BASOPHIL % 0.5 % (0.0-2.0); EOSINOPHIL # 0.2 TH/MM3 (0-0.4); EOSINOPHIL % 2.7 % (0.0-4.0); HEMATOCRIT 36.8 % (35.0-46.0); HEMOGLOBIN 13.2 GM/DL (11.6-15.3); LYMPH % 26.3 % (9.0-44.0); LYMPHOCYTE # 1.9 TH/MM3 (1.0-4.8); MEAN CELL VOLUME 84.9 FL (80.0-100.0); MEAN CORPUSCULAR HEMOGLOBIN 30.4 PG (27.0-34.0); MEAN CORPUSCULAR HGB CONC 35.9 % (32.0-36.0); MEAN PLATELET VOLUME 8.5 FL (7.0-11.0); MONO % 5.2 % (0.0-8.0); MONOCYTE # 0.4 TH/MM3 (0-0.9); NEUT % 65.3 % (16.0-70.0); PLATELET COUNT 290 TH/MM3 (150-450); RED BLOOD COUNT 4.33 MIL/MM3 (4.00-5.30); RED CELL DISTRIBUTION WIDTH 12.4 % (11.6-17.2); WHITE BLOOD COUNT 7.1 TH/MM3 (4.0-11.0)
[2017-09-09 20:00] VITALS: BP 140/73; PULSE 63; RESP 20; TEMP 98.3; O2SAT 97
[2017-09-10] VITALS: BP 121/61; PULSE 62; RESP 18; TEMP 97.3; O2SAT 95
--- NOTE | 2017-09-10 06:57 | HHI.DS ---
Discharge Summary Admission Date September 08, 2017 at 07:43 Admitting Diagnosis Acute pancreatitis (1) Acute pancreatitis Diagnosis: Principal ICD Codes: K85.90 - Acute pancreatitis without necrosis or infection, unspecified Status: Acute (2) Hyperlipidemia Diagnosis: Secondary ICD Codes: E78.5 - Hyperlipidemia, unspecified Status: Chronic (3) Barretts esophagus Diagnosis: Secondary ICD Codes: K22.70 - Brink's esophagus without dysplasia Status: Chronic (4) DM2 (diabetes mellitus, type 2) Diagnosis: Secondary ICD Codes: E11.9 - Type 2 diabetes mellitus without complications Status: Acute Consultants Dr Boyle, GI Brief History 52-year-old female with history of hyperlipidemia and Brink's esophagus presents to ER for evaluation of abdominal pain. Patient reports that approximately 2 hours after her morning meal yesterday while she was walking at the [employer], she began experiencing severe/sharp/right upper quadrant abdominal pain. At this time the patient became nauseous and vomited all the contents of her breakfast. No hemoptysis or hematemesis. No coffee-ground emesis. She reports that she tried to sip some clear liquids after that and eat ice chips but each time she would subsequently vomit. The abdominal pain remained constant, moderate to severe, worse with movements and inspiration. No history of abdominal surgeries or previous issues with her gallbladder or pancreas. She had a normal bowel movement the morning prior to arrival. She has felt subjective fevers and chills but temperature has not been above 99. Her admission labs noted for slight elevated white count of 12,000 and significantly elevated lipase of over 12,000. CT scan consistent with some pancreatitis at the head of the pancreas. No obvious mass was noted. No gallstones were noted. Patient was placed on bowel rest, IV fluids and pain medication. She has been resting relatively well and her last episode of emesis or dry heaving was around midnight. She still is requiring some IV pain medication however. He says her mouth is dry and she like to see if she can tolerate some ice chips. CBC/BMP: 09/09/17 1815 09/08/17 1100 Significant Findings Laboratory Tests Test 09/08/17 11:00 09/08/17 18:05 09/09/17 18:15 Random Glucose 144 MG/DL (74-106) Albumin 3.2 GM/DL (3.4-5.0) Calcium Level 8.4 MG/DL (8.5-10.1) Aspartate Amino Transf (AST/SGOT) 10 U/L (15-37) Lipase 696 U/L (73-393) Imaging Last 72 hours Impressions Cholangiopancreatography MRI 09/09/17 0000 Signed Impressions: Service Date/Time: Saturday, September 09, 2017 10:53 - CONCLUSION: 1. No findings to indicate biliary ductal obstruction identified. 2. No stones are seen within the gallbladder. 3. On the CT examination of 09/06/17 there was a small amount of fluid adjacent to the duodenum and pancreas. This is not appreciated on today' s MRI. Magdaleno Treadwell MD Hospital Course Pt admitted for n/v, abd pain and lipase >12,000 c/w pancreatitis. No obvious etiology for pancreatitis determined. Her Lipase quickly improved during hospital stay, but pt continued to have epigastric pain after meals (worse with solid meals). GI consulted and MRCP was negative. AFP and CA19-9 were wnl. Pt tolerated full breakfast well on day of d/c. Additionally, pt's sugars were noted to be somewhat elevated. Given her hx of "prediabetes" and strong FH of DM, A1c was checked and resulted at 7.5 confirming dx of DM in this pt. She was started on DM diet with education, but didn't tolerate solid foods well initially so diet was downgraded to clear liquids again. Her sugars were over well controlled on current diet and remained generally <150. Will likely start metformin in a week after d/c. Will hold off on new med at this point as sugars aren't that abnormal and she will likely remain on DM diet as outpt. Pt Condition on Discharge: Stable Discharge Disposition: Discharge Home Discharge Instructions Speech Therapy-Diet Recommends: Regular Activities you can perform: Regular-No Restrictions Follow up Referrals: PCP Follow-up New Medications: Metformin (Metformin) 500 Mg Tab 500 MG PO DAILY for Blood Sugar Management, #30 TAB 0 Refills Start metformin 09/17/17 Take with a meal Hydrocodone/Acetaminophen (Hydrocodone-Acetamin 5-325 mg) 5 Mg-325 Mg Tablet 1 TAB PO Q4-6H PRN for pain level 3-10, #16 TAB Ondansetron Odt (Ondansetron Odt) 4 Mg Tab 4 MG PO Q6HR PRN for n,v, #12 TAB Continued Medications: Lansoprazole (Prevacid) 30 Mg Capdr 30 MG PO DAILY, CAP 0 Refills Lovastatin (Lovastatin) 20 Mg Tab 20 MG PO DAILY for Cholesterol Management, #30 TAB 0 Refills Derick Reaves MD PhD September 10, 2017 06:57
[2017-09-10] MEDS ORDERED: HYDR-3516 PO (07:02)
[2017-09-10] MEDS ORDERED: ONDA4TAB7 PO (07:02)
[2017-09-10] MEDS ORDERED: METF500T PO (07:02)
[2017-09-10] MEDS: KETOROLAC TROMETHAMINE 30 MG/ML (IVP) VIAL IV PUSH PRN (07:23)
--- NOTE | 2017-09-10 07:33 | HHI.PR ---
Subjective Remarks Patient feeling much better today. Tolerating clear liquids quite well with only minimal discomfort for a very short time after eating. She would like to advance diet. Hopefully we can advance diet and send her home later today. Objective Vitals Vital Signs Date Time Temp Pulse Resp B/P (MAP) Pulse Ox O2 Delivery O2 Flow Rate FiO2 09/10/17 00:00 97.3 62 18 121/61 (81) 95 09/09/17 20:00 98.3 63 20 140/73 (95) 97 09/09/17 16:00 98.7 66 16 139/73 (95) 96 09/09/17 12:00 98.8 70 16 134/88 (103) 96 09/09/17 08:00 98.9 68 16 128/80 (96) 95 GENERAL: Obese, no acute distress, alert and oriented. Pleasant. SKIN: Warm and dry. HEAD: Normocephalic. EYES: No scleral icterus. No injection or drainage. NECK: Supple, trachea midline. No JVD or lymphadenopathy. CARDIOVASCULAR: Regular rate and rhythm without murmurs, gallops, or rubs. RESPIRATORY: Breath sounds equal bilaterally. No accessory muscle use. GASTROINTESTINAL: Abdomen soft, nondistended. Minimal tenderness in epigastrium , but much improved. No rebound. Bowel sounds normal. MUSCULOSKELETAL: No cyanosis, or edema. Moves all extremities well. BACK: No CVA tenderness. Result Diagram: 09/09/17 1815 09/08/17 1100 Imaging Last 72 hours Impressions Gall Bladder Ultrasound 09/06/17 0000 Signed Impressions: Service Date/Time: Wednesday, September 06, 2017 19:20 - CONCLUSION: 1. Enlarged echogenic liver likely moderate/severe hepatic steatosis. 2. No evidence for cholelithiasis Gage Mckeon MD Chest X-Ray 09/06/17 0000 Signed Impressions: Service Date/Time: Wednesday, September 06, 2017 18:32 - CONCLUSION: No acute disease. Gage Mckeon MD Abdomen/Pelvis CT 09/06/17 0000 Signed Impressions: Service Date/Time: Wednesday, September 06, 2017 20:10 - CONCLUSION: 1. There is minimal fluid adjacent to the pancreatic head/duodenum likely pancreatitis versus less likely duodenitis. Correlation with amylase/lipase levels. 2. Diverticulosis without diverticulitis. 3. Moderate hepatic steatosis. Gage Mckeon MD Urinary Catheter: No Vascular Central Line Catheter: No A/P Problem List: (1) Acute pancreatitis ICD Codes: K85.90 - Acute pancreatitis without necrosis or infection, unspecified Status: Acute Plan: Questionable etiology. No gallstones seen on ultrasound or CT, patient does not drink alcohol regularly, she is not on any obvious offensive drugs and is no new medications recently. At this point appears to be idiopathic pancreatitis which is not an uncommon cause. GI has seen the patient. MRCP, AFP and CA 19-9 all normal. Tolerating clears but had more trouble with solids 2 days ago. We will advance diet this morning and hopefully discharge home later today. (2) Hyperlipidemia ICD Codes: E78.5 - Hyperlipidemia, unspecified Status: Chronic Plan: Triglycerides well controlled. Continue medication as outpatient. (3) Barretts esophagus ICD Codes: K22.70 - Brink's esophagus without dysplasia Status: Chronic Plan: Converted to oral Protonix. (4) DM2 (diabetes mellitus, type 2) ICD Codes: E11.9 - Type 2 diabetes mellitus without complications Status: Acute Plan: Newly diagnosed based on values from this current hospital admission. Sugars quite well controlled with current portion restrictions. We will cover with sliding scale insulin initially. Provide diabetic education. Encouraged weight loss and exercise. May use metformin at discharge. Will avoid sulfonylureas given her current pancreatitis flare. Discharge Planning Hopefully discharge home later today Problem Qualifiers (1) Acute pancreatitis: Qualified Codes: K85.90 - Acute pancreatitis without necrosis or infection, unspecified (2) DM2 (diabetes mellitus, type 2): Derick Reaves MD PhD September 10, 2017 07:33
[2017-09-10] MEDS: ENOXAPARIN SODIUM 30 MG/0.3 ML SYRINGE SQ SCH (08:00)
[2017-09-10] MEDS: INSULIN ASPART SUPPLEMENTAL SCALE SQ SCH (08:00)
[2017-09-10] MEDS: PANTOPRAZOLE SOD 40 MG DELAYED RELEASE TAB PO SCH (08:17)
[2017-09-10] MEDS: DOCUSATE SODIUM 50 MG/SENNA 8.6 MG TAB PO SCH (08:17)
[2017-09-10 08:28] VITALS: BP 150/83; PULSE 61; RESP 16; TEMP 97.4; O2SAT 96
== END 2017-09-10 12:33 | disposition home or self-care (01) | DRG 440 ==
LOC: PHED 17:59 → UNDOADMIN 20:55 → PHEDA 20:55 → INTOOBSV 21:44 → PH3A 22:22 → OBSVTOIN 09-08 07:43
PROVIDERS: ADMIT Family Medicine; ATTEND Family Medicine
DX: K85.90 Acute pancreatitis without necrosis or infection, unspecified (principal); K22.70 Barrett's esophagus without dysplasia; E11.9 Type 2 diabetes mellitus without complications; E78.5 Hyperlipidemia, unspecified; K21.9 Gastro-esophageal reflux disease without esophagitis; E66.9 Obesity, unspecified; Z88.8 Allergy status to other drugs, medicaments and biological substances
CPT/HCPCS: 71045; 74177; 74181; 76377; 76705; 80053; 81001; 82105; 82465; 82550; 82948; 83036; 83690; 84478; 84484; 85025; 85610; 85730; 86301; 93005; C9113; J1170; J1650; J1885; J2270; J2543; J3480; J7030; Q9967